=== PATIENT | male | born 2005 | race Caucasian/White ===

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

== ENCOUNTER 2025-03-18 10:23 | Emergency (ER) | payer SELFPAY ==
--- OUTSIDE RECORDS SUMMARY | 2025-03-18 10:26 | XMS REPORT | Continuity of Care Document ---
Author Name Unknown Address [address] [place] [address] Organization [facility] [place] Address [address] [place] [address] Care Team Providers Care Lawnmower Mechanic Name Role Phone Ryan Spencer Primary Care Physician [phone] [email or web address] Attending Clinician Unavailable BERNICE SIMENTAL Attending Clinician Unavailab Bernice Kelsey DO Attending Clinician [phone] Doctor Unassigned, [place] Attending Clinician U DARIA Moya Attending Clinician Unavailable Daria Turcios Attending Clinician [phone] [email or web address] Admitting Clinician Unavailable Payers Payer Name Policy Type Policy Number Effective Date Expirati on Date Source [facility] MEDICAID [id number] 2014 00:00:00 Problems Condition Name Condition Details Condition Category Status Onset Date Resolution Date Last Treatment Date Treating Clinician Comments Source No known active problems No known active problems Disease [facility] Allergies, Adverse Reactions, Alerts Allergy Name Allergy Type Status Severity Reaction(s) Onset Date Inactive Date Treating Clinician Comments Source NO KNOWN ALLERGIE S Drug Class Active [facility] Social History Social Habit Start Date Stop Date Quantity Comments Source Exposure to SARS-CoV-2 (event) Not sure [facility] Sex Assigned At 2005 00:00:00 2005 00:00:00 [facility] Smoking Status Start Date Stop Date Source Unknown if ever smoked [facility] Medications Ordered Medication Name Filled Medication Name Start Date Stop Date Current Medication? Ordering Clinician Indication Dosage Frequency Signature (SIG) Comments Components Source ondansetron (ZOFRAN-ODT ) disintegrat ing tablet 4 mg 2020-06 14:53: 00 06-01 14:55 :00 No 4mg 4 mg, Oral, ONCE, 1 dose, On [facility] 06/01/21 at 0900, Routine [facility] acetaminoph en (TYLENOL) tablet 1,000 mg 2020-06 14:49: 00 06-01 14:53 :00 No 1000mg 1,000 mg, Oral, ONCE, 1 dose, On [facility] 06/01/21 at 0900, OPAL [facility] ondansetron (ZOFRAN ODT) 4 mg disintegrat ing tablet 2020-06 00:00: 00 Yes [id number] 4mg Take 1 tablet by mouth every 8 (eight) hours as needed for Nausea and Vomiting (N/V). [facility] No known medications 08-17 16:19: 39 No [facility] No known medications No Un reg [facility] No known medications No [facility] No known medications No Un [facility] Vital Signs Vital Name Observation Time Observation Value Comments S ource Heart rate 2021-06-01 16:32:00 92 /min [facility] Body temperature 2021-06-01 16:32:00 37.33 Liza [facility] Systolic blood pressure 2021-06-01 14:32:00 128 mm[Hg] [facility] Diastolic blood pressure 2021-06-01 14:32:00 99 mm[Hg] [facility] Respiratory rate 2021-06-01 14:32:00 20 /min [facility] Body height 2021-06-01 14:32:00 170.2 [facility] Body weight 2021-06-01 14:32:00 72.576 [facility] BMI 2021-06-01 14:32:00 25.06 kg/m2 [facility] Body mass index (BMI) [Percentile] Per age and sex 2021-06-01 14:32:00 89.44 % [facility] Oxygen saturation in Arterial blood by Pulse oximetry 2021-06-01 14:32:00 100 /min [facility] Procedures Procedure Date / Time Performed Performing Clinicia n Source NOTICE OF PRIVACY PRACTICES 2021-06-01 14:28:07 Doctor Unassigned, [place] [facility] CONSENT/REFUSAL FOR DIAGNOSIS AND TREATMENT 2021-06-01 14:27:54 Doctor Unassigned, [place] [facility] Encounters Start Date/Time End Date/Time Encounter Type Admission Type Attending Clinicians Care Facility Care Department Encounter ID Source 2021-06-01 08:33:00 2021-06-01 10:57:00 Emergency X BERNICE SIMENTAL [facility] ERT [id number] [facility] 2021-06-01 08:33:00 2021-06-01 10:57:00 Emergency Bernice Simental [facility] [id number] [facility] 2021-06-01 00:00:00 2021-06-01 00:00:00 Orders Only Doctor Unassigned, [place] [facility] [id number] [facility] 2019-09-24 13:00:00 2019-09-24 13:00:00 Outpatient R DARIA ARMENTA [facility] [id number] [facility] 2019-08-18 16:18:19 2019-08-18 16:33:19 Office Visit [facility] [id number] 2019-08-18 16:18:19 2019-08-18 16:33:19 Office Visit [facility] arielle Arias [id number] [facility] 2019-08-18 16:15:00 2019-08-18 16:15:00 Outpatient R [facility] [id number] [facility] 2019-08-18 00:00:00 2019-08-18 00:00:00 [facility] (Out[facility] [id number] 2019-08-18 00:00:00 2019-08-18 00:00:00 Letter (Out) [facility] arielle Arias [id number] [facility]
[2025-03-18] MEDS ORDERED: LIDOCAINE 1% 20 ML MDV ONE (11:14)
--- NOTE | 2025-03-18 12:36 | EDPHYS ---
Physician Documentation [facility] Name: Charles Pascual Age: 19 yrs Sex: Male : 2005 Arrival Date: 03/18/2025 Time: 10:23 Bed 11 Private MD: ED Physician Willie Jerez HPI: 03/18 14:49 This 19 yrs old Male presents to ER via Ambulatory with complaints of right dr5 foot ingrown toenail. 14:49 Onset: The symptoms/episode began/occurred 3 day(s) ago. Patient is a 19-year-old male dr5 with no past medical history coming with right great toe ingrown toenail for the past 3 days. Patient reports that he has been picking on it and the pain / swelling has gotten worse.. Historical: - Allergies: : No Known Allergies; bp - PSHx: :59 abdomenal; bp - Immunization history:: Adult Immunizations up to date. - Infectious Disease History:: Denies. - Social history:: Smoking status: . ROS: 14:50 Constitutional: as per hpi dr5 Exam: 14:50 Constitutional: This is a well developed, well nourished patient who is awake, alert, dr5 and in no acute distress. Head/Face: Normocephalic, atraumatic. Eyes: Pupils equal round and reactive to light, extra-ocular motions intact. Lids and lashes normal. Conjunctiva and sclera are non-icteric and not injected. Cornea within normal limits. Periorbital areas with no swelling, redness, or edema. Neck: Trachea midline, no thyromegaly or masses palpated, and no cervical lymphadenopathy. Supple, full range of motion without nuchal rigidity, or vertebral point tenderness. No Meningismus. Chest/axilla: Normal chest wall appearance and motion. Nontender with no deformity. No lesions are appreciated. Cardiovascular: Regular rate and rhythm with a normal S1 and S2. Normal PMI, no JVD. No pulse deficits. Respiratory: Lungs have equal breath sounds bilaterally, clear to auscultation. No rales, rhonchi or wheezes noted. No increased work of breathing, no retractions or nasal flaring. Abdomen/GI: Soft, non-tender, non-distended Back: No spinal tenderness. No costovertebral tenderness. Full range of motion. Skin: Warm, dry with normal turgor. Normal color with no rashes, no lesions. Redness, swelling noted to lateral great toe concerning for paronychia Neuro: Awake and alert, GCS 15, oriented to person, place, time, and situation. Cranial nerves II-XII grossly intact. Motor strength 5/5 in all extremities. Sensory grossly intact. Cerebellar exam normal. Normal gait. 14:50 Musculoskeletal/extremity: Extremities: grossly normal except: noted in the Right first toenail: pain, swelling, tenderness, Vital Signs: 10:58 BP 133 / 67; Pulse 71; Resp 16; Temp 98; Pulse Ox 100% ; bp Procedures: 14:50 I \T\ D: Incision and drainage was performed for an abscess of the right right first toe dr5 Prepped with Anesthetized with 2 ml's 1% Lidocaine. Incised with #11 blade. Drained moderate amount purulent fluid. Packed with Dressing: the patient tolerated the procedure well. Performed wedge resection. Wedge resection completed on right great toe. Gauze / coban placed. Patient is feeling better.. MDM: 10:26 Medical Screening Exam initiated dr5 14:57 Differential diagnosis: viral Infection, Ingrown toenail, paronychia, cellulitis. Data dr5 reviewed: vital signs, nurses notes. Consideration of Admission/Observation Escalation of care including admission/observation considered. Escalation considered if patient was febrile and had streaking with rapid spreading cellulitis. I considered the following discharge prescriptions or medication management in the emergency department I discussed and recommended Over The Counter medications, Medications were administered in the Emergency Department. See MAR. Test considered but Not performed: X-ray: X-ray considered but would not have any benefit due to not being bone problem. Historians other than the Patient: Spouse/Significant Other: Significant other. Care significantly affected by the following Social Determinants of Health: Poor access to healthcare and/or lack of insurance, Poor access to transportation, Problems related to employment. Counseling: I had a detailed discussion with the patient and/or guardian regarding the historical points, exam findings, and any diagnostic results supporting the discharge/admit diagnosis, the presence of at least one elevated blood pressure reading (>120/80) during this emergency department visit, the need for outpatient follow up, for definitive care, a family practitioner, a hotel operations manager, to return to the emergency department if symptoms worsen or persist or if there are any questions or concerns that arise at home. Medication response: Lidocaine. Response to treatment: the patient's symptoms have resolved after treatment, the patient's condition has returned to base line, the patient is now symptom free. Special discussion: Based on the history and exam findings, there is no indication for further emergent testing or inpatient evaluation. 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 ED course: Patient feels better after procedure. Will start patient on Keflex. Recommend patient follow-up podiatry. All question answered. Strict ER precautions given.. 03/18 11:01 Order name: Incision \T\ Drainage Setup; Complete Time: 12:48 dr5 Administered Medications: 12:48 Drug: Lidocaine Infiltration (1 %) 20 ml 20 ml Infiltration once; to bedside Volume: 20 bp ml; Route: Infiltration; Disposition: 18:39 Co-signature as Attending Physician, Willie Jerez MD I reviewed the patient's care rn provided by the Advanced Practice Provider and agree with the diagnosis and treatment plan. Disposition Summary: 03/18/25 12:35 Discharge Ordered Notes: Location: Home dr5 Condition: Stable dr5 Diagnosis - Ingrowing nail dr5 - Cellulitis of right toe dr5 Followup: dr5 - With: Emergency Department - When: As needed - Reason: Worsening of condition Followup: dr5 - With: Private Physician - When: 1 - 2 days - Reason: Recheck today's complaints, Continuance of care, Re-evaluation by your physician Discharge Instructions: - Discharge Summary Sheet dr5 - Cellulitis, Adult dr5 - Incision and Drainage dr5 - Ingrown Toenail dr5 Forms: - Work release form dr5 - Medication Reconciliation Form dr5 - Antibiotic Education dr5 - Prescription Opioid Use dr5 - Patient Portal Instructions dr5 - Leadership Thank You Letter dr5 Prescriptions: - Cephalexin 500 mg Oral Capsule - take 1 capsule ORAL route every 12 hours for 10 days; 20 capsule; Refills: 0, dr5 Product Selection Permitted Signatures: Willie Jerez MD MD rn Peltier, Brian, RN RN bp Rhodes, Dustin, GALLITO-C DIETITIAN CONSULTANT-Cdr5
--- NOTE | 2025-03-18 12:36 | ER ---
Nurse's Notes [facility] Name: Charles Pascual Age: 19 yrs Sex: Male : 2005 Arrival Date: 03/18/2025 Time: 10:23 Bed 11 Private MD: Diagnosis: Ingrowing nail;Cellulitis of right toe Presentation: 03/18 10:58 Chief complaint: Patient states: R GREAT TOE PAIN/SWELLING x3 DAYS. Coronavirus screen: bp At this time, the client does not indicate any symptoms associated with coronavirus-19. Ebola Screen: No symptoms or risks identified at this time. Initial Sepsis Screen: Does the patient meet any 2 criteria? No. Patient's initial sepsis screen is negative. Does the patient have a suspected source of infection? No. Patient's initial sepsis screen is negative. Risk Assessment: Do you want to hurt yourself or someone else? Patient reports no desire to harm self or others. Onset of symptoms is unknown. 10:58 Method Of Arrival: Ambulatory bp 10:58 Acuity: PARTH 3 bp Triage Assessment: 10:59 General: Appears in no apparent distress. Behavior is cooperative, appropriate for age. bp Pain: Complains of pain in right first toe. EENT: No deficits noted. Neuro: No deficits noted. Cardiovascular: No deficits noted. Respiratory: No deficits noted. GI: No signs and/or symptoms were reported involving the gastrointestinal system. : No signs and/or symptoms were reported regarding the genitourinary system. Derm: No deficits noted. Musculoskeletal: No deficits noted. Historical: - Allergies: 10:59 No Known Allergies; bp - PSHx: 10:59 abdomenal; bp - Immunization history:: Adult Immunizations up to date. - Infectious Disease History:: Denies. - Social history:: Smoking status: . Screenin:47 [facility] ED Fall Risk Assessment (Adult) History of falling in the last 3 months, bp including since admission No falls in past 3 months (0 pts) Confusion or Disorientation No (0 pts) Intoxicated or Sedated No (0 pts) Impaired Gait No (0 pts) Mobility Assist Device Used No (0 pt) Altered Elimination No (0 pt) Score/Fall Risk Level 0 - 2 = Low Risk Oriented to surroundings. Abuse screen: Denies threats or abuse. Denies injuries from another. Nutritional screening: No deficits noted. Tuberculosis screening: No symptoms or risk factors identified. Vital Signs: 10:58 BP 133 / 67; Pulse 71; Resp 16; Temp 98; Pulse Ox 100% ; bp ED Course: 10:25 Patient arrived in ED. im 10:26 Rico Muse FNP-C is [facility]. dr5 10:26 Willie Jerez MD is Attending Physician. dr5 10:59 Triage completed. bp 10:59 Arm band placed on. bp 12:47 Hugh Agudelo, RN is Primary Nurse. bp 12:47 Patient has correct armband on for positive identification. bp 12:47 Assist provider with I \T\ D: of an abscess on. Patient did not have IV access during bp this emergency room visit. Administered Medications: 12:48 Drug: Lidocaine Infiltration (1 %) 20 ml 20 ml Infiltration once; to bedside Volume: 20 bp ml; Route: Infiltration; Outcome: 12:35 Discharge ordered by MD. dr5 12:47 Discharged to home ambulatory, bp 12:47 Condition: stable 12:47 Discharge instructions given to patient, Instructed on discharge instructions, follow up and referral plans. medication usage, Demonstrated understanding of instructions, follow-up care, medications, Prescriptions given X 1, 12:49 Patient left the ED. bp Signatures: Hugh Agudelo, ABA RN Jessie Faust Rico Muse FNP-C FNP-Cdr5
[2025-03-18 12:53] VITALS: BP 133/67; TEMP 98; O2SAT 100
== END 2025-03-18 12:49 | disposition home or self-care (01) ==
LOC: ER 10:23
PROC: 0H9MXZZ Drainage of Right Foot Skin, External Approach (ICD-10-PCS; principal; 2025-03-18)
DX: L60.0 Ingrowing nail (principal); L03.031 Cellulitis of right toe
CPT/HCPCS: 99283; J2003